=== PATIENT | female | born 1940 | race Caucasian/White ===

== ENCOUNTER → 2018-02-05 | Outpatient (CLI) | payer MEDICARE, BC ==
[2018-02-05 14:31] VITALS: BP 151/74; PULSE 87; RESP 14; TEMP 97.6; BMI 30.6
--- NOTE | 2018-02-05 14:57 | P.GSHP ---
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 She had a bilateral mammogram of the breast on 12-21-17 after which additional views of the left breast led to the biopsy. The patient had a routine screening mammogram performed in which the lesion of concern was identified. She has no masses or nodules in her breast. She has no nipple discharge or skin changes. She has no history of breast trauma or infection. Family History: 1. sister: nonHodgkins lymphoma 2. mother: at 98 of CHF 3. father: at 92 af a [place] Hormonal history Menarche: 11 Pregnancies: 3, 1 miscarrage and 2 living, age at first 18, breast fed: no menopause: 43 BCP: no Hormones: 15 years Surgical history 1. Tonsil 2. bilateral breast biopsies Medical history: 1. High cholesterol Social history smoke: 30 years, stopped at 43 Alcohol: Wine 1 glass per night Drugs: Negative - Constitutional Constitutional: Denies chills, Denies fever - EENT Eyes: left blurred vision (shingles in left eye), denies pain Ears: bilateral: tinnitus, deny: decreased hearing Ears, nose, mouth and throat: Denies headache, Denies sore throat - Breasts Breasts: bilateral: as per HPI - Cardiovascular Cardiovascular: Denies chest pain, Denies shortness of breath - Respiratory Respiratory: Denies cough, Denies 7 - Gastrointestinal Comment: reflux, hiatal hernia Gastrointestinal: Denies abdominal pain, Denies diarrhea, Denies nausea, Denies vomiting - Genitourinary (Female) Genitourinary: Denies dysuria, Denies hematuria - Menstruation Menstruation: Reports postmenopausal - Musculoskeletal Comment: arthritis Musculoskeletal: Denies myalgias - Integumentary Integumentary: Denies pruritus, Denies rash - Neurological Neurological: Denies numbness, Denies weakness - Psychiatric Psychiatric: Denies anxiety, Denies depression - Endocrine Endocrine: Denies fatigue, Denies weight change - Hematologic/Lymphatic Comment: aspirin every day - Allergic/Immunologic Comment: none Medications and Allergies Allergies Allergy/AdvReac Type Severity Reaction Status Date / Time No Known Allergies Allergy Unverified 02/05/18 14:19 Surgical - Exam - General well developed, well nourished, no distress - Eyes normal ocular movement - ENT no hearing loss, no congestion - Neck no masses, trachea midline - Respiratory normal respiratory effort, clear to auscultation - Cardiovascular Rhythm: regular Heart Sounds: normal: S1, S2 - Abdomen Abdomen: soft, non tender, no guarding, no rigid, no rebound - Integumentary bruising left breast - Neurologic no disoriented, no combative - Musculoskeletal normal gait, normal posture - Psychiatric oriented to time, oriented to person, oriented to place, speech is normal, memory intact Breast examination: Right breast: Multiple positional exam no dominant masses or nodules of concern , fibrocystic changes Right axilla: No adenopathy of concern Left breast: Ecchymosis related to stereo biopsy with a small hematoma near the site of the biopsy otherwise no dominant masses or nodules of concern Left axilla: No adenopathy of concern Results Pathology and radiology results reviewed Assessment and Plan Assessment: Impression: 1. DCIS left breast 2. High cholesterol Surgical options have been discussed with the patient her daughter and her . The option of needle localization excisional biopsy and possible radiation versus mastectomy have been discussed with the patient. We've discussed the risks and benefits including bleeding and infection reaction to the anesthetic possibility of positive margins requiring further excision. They understand this and wish to proceed with a needle localization lumpectomy. They also understand that it may be possible that we would find invasive cancer at the time of resection which may necessitate axillary evaluation. Plan: 1. Needle localization lumpectomy left breast 2. Patient will be presented at tumor board CC: Dr. Summers
== END | disposition home or self-care (01) ==
LOC: WWCWWP 13:54
PROVIDERS: ATTEND Surgery
DX: Z53.9 Procedure and treatment not carried out, unspecified reason (principal)

== ENCOUNTER 2018-02-23 10:25 | Day surgery (SDC) | payer MEDICARE, BC ==
[2018-02-18 10:35] VITALS: BMI 30.6
[~2018-02-23 10:25] MED LIST: HEPARIN SODIUM,PORCINE 5,000 UNIT/ML 1 ML VIAL SQ ONE; HYDROmorphone 0.5 MG/0.5 ML SYRINGE IVP PRN; HYDROmorphone 1 MG/ML 1 ML SYRINGE IVP PRN; LACTATED RINGERS 1,000 ML IV SCH; ONDANSETRON 4 MG/2 ML VIAL IVP ONE; ceFAZolin IN SWFI 2 GM/20 ML SYRINGE IVP ONE; fentaNYL (PF) 50 MCG/ML 2 ML AMP IV PRN
[2018-02-23] MEDS ORDERED: ALPRAZolam 0.25 MG TAB PO ONE (11:03)
[2018-02-23] MEDS ORDERED: LIDOCAINE 1% 20 ML VIAL (10MG/ML) FOR IV START INTRADERMA ONE (11:13)
[2018-02-23] MEDS ORDERED: SUCCINYLCHOLINE CHLORIDE 100 MG/5 ML SYR IV ONE ×2 (11:25→13:02)
[2018-02-23] MEDS ORDERED: fentaNYL (PF) 50 MCG/ML 2 ML AMP ONE ×2 (11:25→13:02)
[2018-02-23] MEDS ORDERED: ePHEDrine SULFATE/0.9% NACL/PF 50 MG/5 ML SYRINGE IV ONE (11:25)
[2018-02-23] MEDS ORDERED: PROPOFOL 10 MG/ML 20 ML VIAL IV ONE ×2 (11:25→13:02)
[2018-02-23] MEDS ORDERED: ROPIVACAINE 5 MG/ML 30 ML VIAL ONE (11:25)
[2018-02-23] MEDS ORDERED: MIDAZOLAM 2 MG/2 ML VIAL ONE ×2 (11:25→13:02)
[2018-02-23] MEDS ORDERED: LIDOCAINE 1% INJ 10MG/ML (20 ML MDV) ONE ×2 (11:25→13:02)
[2018-02-23 11:30] VITALS: RESP 16
[2018-02-23] MEDS ORDERED: SODIUM BICARB 4% 5 ML VIAL (0.48 MEQ/ML) MISCELLANE ONE (11:41)
[2018-02-23] MEDS ORDERED: LIDOCAINE 1% INJ 10MG/ML (20 ML MDV) SQ ONE ×5 (11:41→14:44)
[2018-02-23] MEDS ORDERED: HEPARIN SODIUM,PORCINE 5,000 UNIT/ML 1 ML VIAL SQ ONE (12:46)
--- NOTE | 2018-02-23 12:47 | P.PN ---
Progress Note - Text Progress Note Date: 02/23/18 Patient's case was presented at tumor Board and recommendation was to do a sentinel node biopsy at the time of the original surgery. The patient understands the risks and benefits of this and wishes to proceed. If the sentinel node is suspicious for frozen section will be obtained and possible complete lesion dissection performed.
[2018-02-23] MEDS ORDERED: LACTATED RINGERS 1,000 ML IV ONE (14:26)
--- NOTE | 2018-02-23 14:54 | P.OP ---
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 Postoperative Diagnosis: Same Procedure(s) Performed: Left breast sentinel node biopsy, lumpectomy, placement of BioSorb, tissue rearrangement, approximately 4 x 3 cm Anesthesia: GONZALEZ Surgeon: Carol Ann Landry Estimated Blood Loss (ml): 5 IV fluids (ml): 800 Pathology: other ([place] node, breast tissue) Condition: stable Disposition: same day Indications for Procedure: Patient with biopsy proven ductal carcinoma in situ of the left breast, possible microinvasion Operative Findings: Extremely dense breast tissue Description of Procedure: The patient was taken to the operating room and following induction of general anesthesia the left breast and axilla were prepped and draped in a sterile fashion. Utilizing the neoprobe the area of greatest radioactivity in the axilla was selected. An incision was made over this area. A lymph node which was approximately 1 cm in size was identified this was radioactive. The 10 second count on the lymph node was 3745. The lymph node was removed using careful dissection and the Harmonic scalpel. The lymph node was sent for frozen section evaluation as it felt slightly suspicious and this was negative for cancer on frozen section. The remainder of the axilla was interrogated using the neoprobe and the 10 second background count was 30. No other suspicious nodes nor radioactive nodes were identified. The deep tissues of the axilla were then closed using 3-0 Vicryl suture after the axilla had been irrigated and found to have good hemostasis. The skin was closed using 4-0 Monocryl. The area of the breast was then approached. Circumareolar incision was made and carried down the localizing needle. Wide excision around the area of the needle was performed. In order to facilitate this was necessary to undermine the breast tissue superiorly. The excision was then performed. The specimen was painted for orientation. Radiograph of the specimen revealed the area of concern about removed. To close the defect tissue rearrangement was performed approximately 4 cm x 3 cm. The cavity was measured for a Biozorb and a 3 x 3 by Biozorb was chosen. This was placed and secured in place using 3-0 Vicryl sutures. The dissection was performed down to the pectoralis major muscle posteriorly. An additional section of tissue nodularity was noted inferiorly and additional tissue was taken inferiorly with the external margin been painted for orientation. After we were assured that hemostasis was attained in the wound had been well irrigated and the skin was closed using 4-0 Monocryl. No All instrument and sponge counts were correct at the end of the case. The patient tolerated the procedure in stable condition.
--- NOTE | 2018-02-23 14:57 | P.DS ---
Providers Attending physician: Carol Ann Landry Primary care physician: Armani Summers Plan - Discharge Summary New Discharge Prescriptions: No Action Ibuprofen [Motrin] 400 mg PO DAILY PRN PRN Reason: Headache Multivitamin with Iron [Multivitamins with Iron] 1 each PO DAILY Ubidecarenone [Co Q-10] 400 mg PO DAILY Aspirin [Adult Low Dose Aspirin EC] 81 mg PO DAILY Omeprazole [PriLOSEC] 20 mg PO AC-BRKFST Atorvastatin [Lipitor] 10 mg PO HS Discharge Medication List Aspirin [Adult Low Dose Aspirin EC] 81 mg PO DAILY 02/05/18 [History] Atorvastatin [Lipitor] 10 mg PO HS 02/05/18 [History] Ibuprofen [Motrin] 400 mg PO DAILY PRN 02/05/18 [History] Multivitamin with Iron [Multivitamins with Iron] 1 each PO DAILY 02/05/18 [ History] Omeprazole [PriLOSEC] 20 mg PO AC-BRKFST 02/05/18 [History] Ubidecarenone [Co Q-10] 400 mg PO DAILY 02/05/18 [History] Follow up Appointment(s)/Referral(s): Carol Ann Landry MD [STAFF PHYSICIAN] - 1 Week Activity/Diet/Wound Care/Special Instructions: do not drive today wear bra at all times except in shower may shower after 48 hours Discharge Disposition: HOME SELF-CARE
--- NOTE | 2018-02-23 14:57 | P.NAPBC ---
NAPBC Queries - NAPBC Queries Was patient's case review presented at [facility] tumor board? If no, comment.: Yes Was patient's pathology reviewed at [facility]? If no, comment.: Yes Was breast conservation surgery offered? If no, comment.: Yes Was sentinel node biopsy offered? If no, comment.: Yes Was diagnosis confirmed by percutaneous core biopsy? If no, comment.: Yes If mastectomy patient, was a preop referral to a reconstructive surgeon offered? : Yes
--- NOTE | 2018-02-23 15:02 | NM ---
EXAMINATION TYPE: NM sentinel node injection DATE OF EXAM: 02/23/2018 COMPARISON: Outside exam dated 01/26/2018 and 12/28/2017 HISTORY: Left breast cancer. TECHNIQUE AND FINDINGS: The procedure of sentinel lymph node injection was explained to the patient. The benefits, alternatives, and risks were discussed. An informed consent was then obtained. Prepr ocedural timeout was performed. Overlying skin is cleaned with sterile alcohol. Following this, 539 uCi Tc99m Tilmanocept was inject ed in the upper outer aspect of the nipple intradermally. The patient tolerated the procedure well without any immediate complication. The patient was kept in the radiology department for short stay after the procedure and then taken to surgery for surgical p rocedure what is presumed intraoperative gamma probe will be used for sentinel lymph node detection. IMPRESSION: Left breast radiotracer injection for sentinel node localization as above.
[2018-02-23 15:10] VITALS: TEMP 97.6
[2018-02-23] MEDS ORDERED: HYDROcodone/APAP 5-325MG 1 EACH TAB PO ONE (16:06)
[2018-02-23 16:24] VITALS: BP 127/76; PULSE 79
== END 2018-02-23 16:42 | disposition home or self-care (01) ==
LOC: OR 10:25
PROVIDERS: ATTEND Surgery
DX: D05.12 Intraductal carcinoma in situ of left breast (principal); E78.00 Pure hypercholesterolemia, unspecified; K21.9 Gastro-esophageal reflux disease without esophagitis; Z79.82 Long term (current) use of aspirin; Z79.899 Other long term (current) drug therapy; Z78.0 Asymptomatic menopausal state; Z87.891 Personal history of nicotine dependence; Z88.8 Allergy status to other drugs, medicaments and biological substances
CPT/HCPCS: 19301; 38525; 88342; 88331; 88307; 88341; 38792; A4648; A9520; J2250; J1644; J2405; J2001; J3010; J2795; J0330; J2704; J1170; J0690

== ENCOUNTER → 2018-03-05 | Outpatient (CLI) | payer MEDICARE, BC ==
[2018-03-05 08:41] VITALS: BP 156/70; PULSE 77; RESP 18; TEMP 96.5; BMI 31.1
--- NOTE | 2018-03-05 09:41 | P.PN ---
Subjective Progress Note Date: 03/05/18 Principal diagnosis: Left breast ductal carcinoma in situ could not rule out invasive carcinoma patient underwent a lumpectomy with sentinel biopsy The patient is a 77-year-old white female who is status post a left breast lumpectomy and sentinel node biopsy performed [id number]. Pathology did not reveal any residual cancer and the lymph nodes were negative for metastatic disease. Pathology did reveal intraductal hyperplasia with atypia and an intraductal papilloma. The patient has no complaints related to the surgery. She used the pain medication only on the day of surgery. Objective - Vital Signs Vital signs: Vital Signs Temp 96.5 F L 03/05/18 08:35 Pulse 77 03/05/18 08:35 Resp 18 03/05/18 08:35 BP 156/70 03/05/18 08:35 Pulse Ox 97 03/05/18 08:35 Intake & Output 03/04/18 03/05/18 03/05/18 18:59 06:59 18:59 Weight 77.111 kg - Exam BMI 31.1 - Constitutional General appearance: Present: average body habitus - EENT Eyes: Present: EOMI ENT: Present: hearing grossly normal - Neck Neck: Present: normal ROM - Respiratory Respiratory: bilateral: CTA - Cardiovascular Rhythm: regular Heart sounds: normal: S1, S2 - Gastrointestinal General gastrointestinal: Present: soft - Integumentary Integumentary Comment(s): Incision clean and dry both on the breast and under the axilla on the left - Musculoskeletal Musculoskeletal: Present: gait normal - Psychiatric Psychiatric: Present: A&O x's 3, appropriate affect, intact judgment & insight Assessment and Plan Assessment: Impression/plan: 1. Stage 0 left breast cancer ductal carcinoma in situ 2. Patient status post lumpectomy sentinel node biopsy there was concern that there was some microinvasion Plan: 1. Appointment with medical oncology 2. Appointment with radiation oncology 3. follow up 3 months CC: Dr. Summers
== END | disposition home or self-care (01) ==
LOC: WWCWWP 08:26
PROVIDERS: ATTEND Surgery
DX: Z53.9 Procedure and treatment not carried out, unspecified reason (principal)
CPT/HCPCS: 76098

== ENCOUNTER → 2018-10-27 | Outpatient (CLI) | payer MEDICARE, BC ==
--- NOTE | 2018-10-27 11:14 | MM ---
Reason for exam: follow-up at short interval from prior study. History: Patient is postmenopausal and has history of breast cancer at age 77. Benign MG pre op needle loc LT of the left breast, February 23, 2018. Physical Findings: Nurse did not find any significant physical abnormalities on exam. MG 3D Diag Mammo W/Cad LT Spot compression CC, spot compression MLO, and ML view(s) were taken of the left breast. The breast tissue is heterogeneously dense. This may lower the sensitivity of mammography. Finding #1: Architectural distortion in the central position of the left breast consistent with previous surgery. Finding #2: There are typically benign calcifications in the left breast. These results were verbally communicated with the patient and result sheet given to the patient on 10/27/18. ASSESSMENT: Probably benign, BI-RAD 3 RECOMMENDATION: Follow-up diagnostic mammogram of both breasts in 6 months.
== END | disposition home or self-care (01) ==
LOC: RADMAMWWP 10:04
PROVIDERS: ATTEND Surgery
DX: R92.8 Other abnormal and inconclusive findings on diagnostic imaging of breast (principal)
CPT/HCPCS: 77065; G0279; 77061

== ENCOUNTER → 2019-01-14 | Outpatient (CLI) | payer MEDICARE, BC ==
[2019-01-14 10:20] VITALS: BP 127/70; PULSE 90; RESP 18; TEMP 97.9; BMI 32.3
--- NOTE | 2019-01-14 10:45 | P.PN ---
Subjective Progress Note Date: 01/14/19 Anna is an 78 year old status post left breast lumpectomy and sentinel node biopsy and [id number]. Pathology did not reveal any residual cancer at that time. This was done for ductal carcinoma in situ. The patient did not have any radiation therapy. She did not have any chemo or hormonal therapy. Pathology at the time of surgery did reveal intraductal hyperplasia with atypia and an intraductal papilloma. [place] [id number]. This was felt to be probably benign BIRADS 3 and follow-up diagnostic mammogram of both breasts in 6 months time was recommended. The patient continues to feel some illness at the site of the lumpectomy. The patient is not complaining of any increase in the size of the area. She is not complaining of any pain. The patient saw a medical oncologist and radiation oncologist in [place] and opted not to have any additional treatment. Family History: 1. sister: nonHodgkins lymphoma 2. mother: at 98 of CHF 3. father: at 92 af a [place] Hormonal history Menarche: 11 Pregnancies: 3, 1 miscarrage and 2 living, age at first 18, breast fed: no menopause: 43 BCP: no Hormones: 15 years Surgical history 1. Tonsil 2. bilateral breast biopsies 3. left breast lumpectomy and SNB. Medical history: 1. High cholesterol Social history smoke: 30 years, stopped at 43 Alcohol: Wine 1 glass per night Drugs: Negative - Constitutional Constitutional: Denies chills, Denies fever - EENT Eyes: left blurred vision (shingles in left eye), denies pain Ears: bilateral: tinnitus, deny: decreased hearing Ears, nose, mouth and throat: Denies headache, Denies sore throat - Breasts Breasts: bilateral: as per HPI - Cardiovascular Cardiovascular: Denies chest pain, Denies shortness of breath - Respiratory Respiratory: Denies cough, Denies 7 - Gastrointestinal Comment: reflux, hiatal hernia Gastrointestinal: Denies abdominal pain, Denies diarrhea, Denies nausea, Denies vomiting - Genitourinary (Female) Genitourinary: Denies dysuria, Denies hematuria - Menstruation Menstruation: Reports postmenopausal - Musculoskeletal Comment: arthritis Musculoskeletal: Denies myalgias - Integumentary Integumentary: Denies pruritus, Denies rash - Neurological Neurological: Denies numbness, Denies weakness - Psychiatric Psychiatric: Denies anxiety, Denies depression - Endocrine Endocrine: Denies fatigue, Denies weight change - Hematologic/Lymphatic Comment: stopped taking aspirin - Allergic/Immunologic Comment: none Objective - Vital Signs Vital signs: Vital Signs Temp 97.9 F 01/14/19 10:14 Pulse 90 01/14/19 10:14 Resp 18 01/14/19 10:14 BP 127/70 01/14/19 10:14 Pulse Ox 95 01/14/19 10:14 Intake & Output 01/13/19 01/14/19 01/14/19 18:59 06:59 18:59 Weight 80.286 kg - Exam BMI 32.4 - Constitutional General appearance: Present: average body habitus - EENT Eyes: Present: EOMI ENT: Present: hearing grossly normal - Respiratory Respiratory: bilateral: CTA - Cardiovascular Rhythm: regular Heart sounds: normal: S1, S2 - Gastrointestinal General gastrointestinal: Present: soft - Integumentary Integumentary: Present: normal turgor - Musculoskeletal Musculoskeletal: Present: gait normal - Psychiatric Psychiatric: Present: A&O x's 3, appropriate affect, intact judgment & insight - Additional findings Additional findings: breast exam: Right breast: Multi-positional exam no dominant masses or nodules of concern Right breast slightly larger than left breast Right axilla: No adenopathy of concern Left breast: Well-healed scar from prior surgery BioSorb in place no dominant masses or nodules of concern on multi-positional exam fibrocystic changes Left axilla: No adenopathy of concern We have discussed the fact that her breasts are slightly asymmetric and the patient is not interested in the contralateral symmetry procedure Assessment and Plan Assessment: Impression: 1. Patient status post left breast lumpectomy and sentinel node biopsy for DCIS's last suspicion for invasion 2. Tumor DCIS, suspicious invasion, ER negative, 8 MT negative, HER-2 positive G2 3. Family history of cancer sister with Hodgkin's lymphoma 4. High cholesterol. 5. Patient is not taking an anti-hormone medication 6. Patient will be due for bilateral mammogram in April 2019 Plan: 1. Repeat bilateral mammogram in April however patient will be in [place] and she will get Indocin and she gets back as she wishes not to have it done in [place] 2. Follow-up as soon as patient returns from [place], patient given option to have it before she leaves and wishes to wait as she gets back 3. Medical management of medical conditions CC: DR. Summers
== END ==
LOC: WWCWWP 09:57
PROVIDERS: ATTEND Surgery
DX: Z53.9 Procedure and treatment not carried out, unspecified reason (principal)

== ENCOUNTER → 2019-10-31 | Outpatient (CLI) | payer MEDICARE, BC ==
--- NOTE | 2019-10-31 15:06 | MM ---
Reason for exam: additional evaluation requested from prior study. Last mammogram was performed 1 year ago. History: Patient is postmenopausal, has history of breast cancer at age 77, and history of other cancer. Benign MG pre op needle loc LT of the left breast, February 23, 2018. Benign excisional biopsy of the right breast. Lumpectomy of the left breast. Took estrogen for 20 years. Took progesterone for 20 years. Physical Findings: Nurse did not find any significant physical abnormalities on exam. MG 3D Diag Mammo W/Cad CHARIS Bilateral CC and MLO view(s) were taken. Prior study comparison: October 27, 2018, left breast MG 3d diag mammo w/cad LT. The breast tissue is heterogeneously dense. This may lower the sensitivity of mammography. Finding #1: Architectural distortion in the left breast consisent with known excisional changes. Finding #2: There are typically benign round calcifications in both breasts. 10mm grouped heterogeneous calcifications in the left breast middle depth outer lower quadrant. These results were verbally communicated with the patient and result sheet given to the patient on 10/31/19. ASSESSMENT: Suspicious, BI-RAD 4 Suspicious, BI-RAD 4 abnormality in the left breast. Incomplete: need prior studies of the right breast. RECOMMENDATION: Stereotactic core biopsy of the left breast. Called office with mammographic findings and has scheduled an appointment for the patient for 11/10/19 at 2:[address] Landry. Biopsy scheduled for 11/17/19 at 8:00. PRELIMINARY REPORT CALLED AND FAXED TO DR. LANDRY ON 10/31/19.
== END | disposition home or self-care (01) ==
LOC: RADMAMWWP 13:41
PROVIDERS: ATTEND Surgery
DX: R92.8 Other abnormal and inconclusive findings on diagnostic imaging of breast (principal)
CPT/HCPCS: 77066; G0279; 77062

== ENCOUNTER → 2019-11-10 | Outpatient (CLI) | payer MEDICARE, BC ==
[2019-11-10 14:56] VITALS: BP 138/74; PULSE 87; RESP 20; TEMP 98.1
--- NOTE | 2019-11-10 15:42 | P.PN ---
Subjective Progress Note Date: 11/10/19 Principal diagnosis: left breast DCIS, abnormal left breast mammogram Anna is an 78 year old status post left breast lumpectomy and sentinel node biopsy and [id number]. Pathology did not reveal any residual cancer at that time. This was done for ductal carcinoma in situ. The patient did not have any radiation therapy. She did not have any chemo or hormonal therapy. Pathology at the time of surgery did reveal intraductal hyperplasia with atypia and an intraductal papilloma. [place] [id number]. This was felt to be probably benign BIRADS 3 and follow-up diagnostic mammogram of both breasts in 6 months time was recommended. The patient continues to feel some fullness at the site of the lumpectomy, a biozorb was placed The patient is not complaining of any increase in the size of the area. She is not complaining of any pain. The patient saw a medical oncologist and radiation oncologist in [place] and opted not to have any additional treatment. The patient at this time is not complaining of any new lumps masses or nodules in either breast. She is complaining of any breast pain. She's not had any recent breast trauma or infection. The patient had a bilateral mammogram performed and [id number]. This revealed stable findings in the right breast. In the left breast she was noted to have architectural distortion consistent with known excisional changes as well as typically benign down calcifications in both breast and a 10 mm grouped heterogeneous calcifications in the left breast middle depth outer lower quadrant. The heterogeneous calcifications were felt to be suspicious and stereotactic core biopsy of the left breast was recommended. Family History: 1. sister: nonHodgkins lymphoma 2. mother: at 98 of CHF 3. father: at 92 af a [place] Hormonal history Menarche: 11 Pregnancies: 3, 1 miscarrage and 2 living, age at first 18, breast fed: no menopause: 43 BCP: no Hormones: 15 years Surgical history 1. Tonsil 2. bilateral breast biopsies 3. left breast lumpectomy and SNB. Medical history: 1. High cholesterol 2. hiatal hernia Social history smoke: 30 years, stopped at 43 Alcohol: Wine 1 glass per night Drugs: Negative - Constitutional Constitutional: Denies chills, Denies fever - EENT Eyes: left blurred vision (shingles in left eye), denies pain Ears: bilateral: tinnitus, deny: decreased hearing Ears, nose, mouth and throat: Denies headache, Denies sore throat - Breasts Breasts: bilateral: as per HPI - Cardiovascular Cardiovascular: Denies chest pain, Denies shortness of breath - Respiratory Respiratory: Denies cough - Gastrointestinal Comment: reflux, hiatal hernia Gastrointestinal: Denies abdominal pain, Denies diarrhea, Denies nausea, Denies vomiting - Genitourinary (Female) Genitourinary: Denies dysuria, Denies hematuria - Menstruation Menstruation: Reports postmenopausal - Musculoskeletal Comment: arthritis Musculoskeletal: Denies myalgias - Integumentary Integumentary: Denies pruritus, Denies rash - Neurological Neurological: Denies numbness, Denies weakness - Psychiatric Psychiatric: Denies anxiety, Denies depression - Endocrine Endocrine: Denies fatigue, Denies weight change - Hematologic/Lymphatic Comment: stopped taking aspirin - Allergic/Immunologic PER HPI Objective - Vital Signs Vital signs: Vital Signs Temp 98.1 F 11/10/19 14:53 Pulse 87 11/10/19 14:53 Resp 20 11/10/19 14:53 BP 138/74 11/10/19 14:53 Pulse Ox 95 11/10/19 14:53 Intake & Output 11/09/19 11/10/19 11/10/19 18:59 06:59 18:59 Weight 82.554 kg - Exam BMI 33.3 - Constitutional General appearance: Present: obese - EENT Eyes: Present: EOMI ENT: Present: hearing grossly normal - Neck Neck: Present: normal ROM - Respiratory Respiratory: bilateral: CTA - Cardiovascular Rhythm: regular Heart sounds: normal: S1, S2 - Gastrointestinal General gastrointestinal: Present: normal bowel sounds, soft - Integumentary Integumentary: Present: normal turgor - Musculoskeletal Musculoskeletal: Present: gait normal - Psychiatric Psychiatric: Present: A&O x's 3, appropriate affect, intact judgment & insight - Additional findings Additional findings: breast exam: BRA cup size C inspection: Left breast smaller than right breast, well-healed scar from prior breast surgery, ptosis grade 2/3 bilateral Palpation: Right breast: Multiple positional exam no dominant masses or nodules of concern, fibrocystic changes Right axilla: No adenopathy of concern Left breast: Multi-positional exam no dominant masses or nodules of concern, well-healed scar from prior surgery, BioSorb is still palpable in the 12 o'clock position Left axilla: No adenopathy of concern Assessment and Plan Assessment: Impression: 1. Bilateral fibrocystic breast changes 2. Postsurgical changes left breast/BioSorb stapler probable 3. Mammographic abnormality left breast 4. Fibrocystic changes bilateral 5. BMI 33.3 6. No evidence of recurrent cancer/patient positive DCIS in February 2018 Plan: 1. Left breast stereotactic core biopsy 2. Repeat examination in 6 months 3. Patient has opted not to have radiation or hormonal therapy CC: Dr. Summers encounter 20 minutes, > 50% of time in planning and counselling Time with Patient: Less than 30
== END | disposition home or self-care (01) ==
LOC: WWCWWP 14:33
PROVIDERS: ATTEND Surgery
DX: Z53.9 Procedure and treatment not carried out, unspecified reason (principal)

== ENCOUNTER → 2019-11-17 | Day surgery (SDC) | payer MEDICARE, BC ==
--- NOTE | 2019-11-17 08:45 | P.PCN ---
Date of Procedure: 11/17/19 Preoperative Diagnosis: Mammographic abnormality left breast middle depth outer lower quadrant/microcalcifications of concern Postoperative Diagnosis: Same Procedure(s) Performed: Left breast stereotactic core biopsy Anesthesia: local Surgeon: Carol Ann Landry Estimated Blood Loss (ml): 0.05 Pathology: other (Breast tissue) Condition: stable Disposition: same day Indications for Procedure: Mammographic abnormality heterogeneous calcifications left breast middle depth outer lower quadrant Operative Findings: Microcalcifications noted and biopsy specimen Description of Procedure: The patient is an 79-year-old white female who is status post known excisional resection of the left breast in the past. On a mammogram performed on 10/2219 she was noted to have heterogeneous calcifications in the left breast middle depth outer lower quadrant for which stereotactic core biopsy was recommended. She was recommended to undergo stereotactic core biopsy. Risks and benefits the procedure were discussed with the patient and she wished to proceed. Alternatives such as watchful waiting or resection in the operating room were not recommended. The patient was taken to the stereotactic core biopsy wound. She was positioned on the stereotactic prone table. A carbide die maker film was obtained and revealed the calcifications of concern. The CC from below approach was utilized. This is the left breast in the lower outer quadrant. A sterile repair was obtained. The area of concern was targeted. The breast was prepped using Betadine. 20 mL of 1% lidocaine were used to anesthetize the area of concern. A 9-gauge vacuum-assisted core rotating biopsy needle was taken to the correct coordinates. The needle was fired. Post fire films were obtained. The needle was noted to be in the correct location. 13 core biopsies were obtained. Radiograph of the specimen revealed that the area of concern had been sampled. Calcifications were noted in the specimen. A secure marked top marker was placed. The patient tolerated the procedure in stable condition. Specimen was sent to pathology. The patient will follow-up with Dr. Clement next week.
--- NOTE | 2019-11-17 16:34 | MM ---
EXAMINATION TYPE: MG stereo VAD BX LT DATE OF EXAM: 11/17/2019 COMPARISON: 10/31/2019 CLINICAL HISTORY: 79-year-old female with personal history of left breast cancer referred for biopsy of left breast microcalcifications. TECHNIQUE: Stereotactic guided core biopsy of the left breast. FINDINGS: The procedure of stereotactic guided core biopsy was explained to the patient. Benefits, alternatives, and risks were discussed. An informed consent was then obtained. The shortness pathway for biopsy was chosen for the lower outer quadrant microcalcifications at a middle depth. Shortness pathway was an inferior approach. I performed the localization, then surgeon, Dr. Urbano Bustos performed the remainder of the procedure. A vacuum assisted biopsy gun was used to obtain multiple core samples. The patient tolerated the procedure well without any immediate complication. The patient was kept in the radiology department for short stay after the procedure and then discharged home in stable condition. Targeted calcifications are identified in specimen mammogram. Post biopsy mammogram shows suspected 1 cm superior migration on the lateral view. IMPRESSION: SUCCESSFUL, UNCOMPLICATED STEREOTACTIC GUIDED CORE BIOPSY OF LOWER OUTER QUADRANT LEFT BREAST MICROCALCIFICATIONS IN A PATIENT WITH A PERSONAL HISTORY OF PRIOR LEFT BREAST CANCER. NOTE THAT THERE APPEARS TO HAVE BEEN 1 CM OF SUPERIOR MIGRATION. FULL PATHOLOGY RESULTS TO FOLLOW. Pathology Results: Benign LEFT BREAST, STEREOTACTIC CORE BIOPSY: Fibrocystic changes including fibroadenomatoid hyperplasia with calcifications. Recommendation Follow up mammogram of the left breast in 6 months. MTDD
[2019-11-18 09:54] VITALS: BP 154/78; PULSE 85; RESP 16; TEMP 98.2
== END ==
LOC: RADMAMWWP 07:05
PROVIDERS: ATTEND Surgery
DX: N60.12 Diffuse cystic mastopathy of left breast (principal); N60.82 Other benign mammary dysplasias of left breast
CPT/HCPCS: 88305; 19081; A4648; J2001

== ENCOUNTER → 2020-11-01 | Outpatient (CLI) | payer MEDICARE, BC ==
--- NOTE | 2020-11-02 10:31 | MM ---
Reason for exam: additional evaluation requested from prior study. Last mammogram was performed 1 year ago. History: Patient is postmenopausal, has history of breast cancer at age 77, and history of other cancer. Benign MG stereo VAD BX LT of the left breast, November 17, 2019. Benign MG pre op needle loc LT of the left breast, February 23, 2018. Stereotactic core biopsy of the left breast, January 27, 2018. Benign excisional biopsy of the right breast. Lumpectomy of the left breast. Took estrogen for 20 years. Took progesterone for 20 years. Physical Findings: Nurse Summary: 2cm nodule in the left breast at 12 o'clock (nurse TM). MG 3D Diag Mammo W/Cad CHARIS Bilateral CC and MLO view(s) were taken. Prior study comparison: October 31, 2019, bilateral MG 3d diag mammo w/cad CHARIS. October 27, 2018, left breast MG 3d diag mammo w/cad LT. There are scattered fibroglandular densities. Left post operative changes and biopsy clip. These results were verbally communicated with the patient and result sheet given to the patient on 11/01/20. ASSESSMENT: Benign, BI-RAD 2 RECOMMENDATION: Follow-up diagnostic mammogram of both breasts in 1 year.
== END | disposition home or self-care (01) ==
LOC: RADMAMWWP 12:50
PROVIDERS: ATTEND Surgery
DX: R92.8 Other abnormal and inconclusive findings on diagnostic imaging of breast (principal)
CPT/HCPCS: 77066; G0279; 77062

== ENCOUNTER → 2021-11-08 | Outpatient (CLI) | payer MEDICARE, BC ==
--- NOTE | 2021-11-08 13:35 | MM ---
Reason for Exam: Hx of breast cancer, conservation therapy. Last mammogram was performed 1 year(s) and 1 month(s) ago. Patient History: Menarche at age 10. First Full-Term at age 18. Postmenopausal. Breast cancer, left, age 77. Other cancer. Patient used Estrogen for 20 years. Patient used Progesterone for 20 years. 01/27/2018, Stereotactic Core Biopsy on the Left side. Benign Excisional Biopsy on the right side. Lumpectomy on the Left side. 11/17/2019, Benign Core Biopsy on the left side. 02/23/2018, Benign Core Biopsy on the left side. Prior Study Comparison: 12/21/2017 Bilateral Screening Mammogram, [facility]. 01/05/2018 Left Screening Mammogram, [facility]. 10/27/2018 Left Diagnostic Mammogram, [facility]. 10/31/2019 Bilateral Diagnostic Mammogram, [facility]. 11/01/2020 Bilateral Diagnostic Mammogram, [facility]. Tissue Density: There are scattered fibroglandular densities. Findings: Analyzed By CAD. Postbiopsy changes are within the left breast. Chronic nodularity is within the right breast. No suspicious spiculated or lobular masses clustered microcalcifications, architectural distortion, or other secondary signs of malignancy are radiographically apparent. Overall Assessment: Benign, BI-RAD 2 Management: Diagnostic Mammogram of both breasts in 1 year. A clinical breast exam by your physician is recommended on an annual basis and results should be correlated with mammographic findings. This exam should not preclude additional follow-up of suspicious palpable abnormalities. Results were given to the patient verbally at the time of exam. Electronically signed and approved by: Stephen Obrien D.O. Radiologis
== END | disposition home or self-care (01) ==
LOC: RADMAMWWP 12:54
PROVIDERS: ATTEND Surgery
DX: R92.8 Other abnormal and inconclusive findings on diagnostic imaging of breast (principal)
CPT/HCPCS: 77066; G0279; 77062

== ENCOUNTER → 2021-11-21 | Outpatient (CLI) | payer MEDICARE, BC ==
[2021-11-21 12:07] VITALS: BP 146/77; PULSE 67; RESP 17; TEMP 98.3
--- NOTE | 2021-11-21 12:26 | P.PN ---
Subjective Progress Note Date: 11/21/21 Principal diagnosis: left breast DCIS left breast DCIS Anna is an 81 year old status post left breast lumpectomy and sentinel node biopsy and [id number]. Pathology did not reveal any residual cancer at that time. This was done for ductal carcinoma in situ. The patient did not have any radiation therapy. She did not have any chemo or hormonal therapy. Pathology at the time of surgery did reveal intraductal hyperplasia with atypia and an intraductal papilloma. This time she is not complaining of any lumps masses or nodules of concern in either breast. She is not complaining of any breast pain. She has not had any recent trauma or infection in the breast. The most recent mammogram was 11-08-21 which was benign BIRAD 2. Family History: 1. sister: nonHodgkins lymphoma 2. mother: at 98 of CHF 3. father: at 92 af a [place] Hormonal history Menarche: 11 Pregnancies: 3, 1 miscarrage and 2 living, age at first 18, breast fed: no menopause: 43 BCP: no Hormones: 15 years Surgical history 1. Tonsil 2. bilateral breast biopsies 3. left breast lumpectomy and SNB. Medical history: 1. High cholesterol 2. hiatal hernia Social history smoke: 30 years, stopped at 43 Alcohol: Wine 1 glass per night Drugs: Negative - Constitutional Constitutional: Denies chills, Denies fever - EENT Eyes: left blurred vision (shingles in left eye), denies pain Ears: bilateral: tinnitus, deny: decreased hearing Ears, nose, mouth and throat: Denies headache, Denies sore throat - Breasts Breasts: bilateral: as per HPI - Cardiovascular Cardiovascular: Denies chest pain, Denies shortness of breath - Respiratory Respiratory: Denies cough - Gastrointestinal Comment: reflux, hiatal hernia Gastrointestinal: Denies abdominal pain, Denies diarrhea, Denies nausea, Denies vomiting - Genitourinary (Female) Genitourinary: Denies dysuria, Denies hematuria - Menstruation Menstruation: Reports postmenopausal - Musculoskeletal Comment: arthritis Musculoskeletal: Denies myalgias - Integumentary Integumentary: Denies pruritus, Denies rash - Neurological Neurological: Denies numbness, Denies weakness - Psychiatric Psychiatric: Denies anxiety, Denies depression - Endocrine Endocrine: Denies fatigue, Denies weight change - Hematologic/Lymphatic Comment: stopped taking aspirin - Allergic/Immunologic PER HPI Objective - Vital Signs Vital signs: Vital Signs Temp 98.3 F 11/21/21 12:05 Pulse 67 11/21/21 12:05 Resp 17 11/21/21 12:05 BP 146/77 11/21/21 12:05 Pulse Ox 99 11/21/21 12:05 FiO2 Intake & Output 11/20/21 11/21/21 11/21/21 18:59 06:59 18:59 Weight 79.832 kg - Exam BMI: 32.2 - Constitutional General appearance: Present: cooperative - EENT Eyes: Present: EOMI ENT: Present: hearing grossly normal - Neck Neck: Present: normal ROM - Respiratory Respiratory: bilateral: CTA - Cardiovascular Rhythm: regular Heart sounds: normal: S1, S2 - Integumentary Integumentary: Present: normal turgor - Musculoskeletal Musculoskeletal: Present: gait normal - Psychiatric Psychiatric: Present: A&O x's 3, appropriate affect, intact judgment & insight - Additional findings Additional findings: Breast Exam: BRA: 36C inspection: Left breast smaller than right breast. Palpation: Right breast: Multi-positional exam fibrocystic changes no dominant masses or nodules of concern Right axilla: No adenopathy of concern Left breast: Postoperative changes no dominant masses or nodules of concern, BioSorb is no longer palpable Left axilla: No adenopathy of concern Assessment and Plan Assessment: Impression: Patient status post left lumpectomy for ductal carcinoma in situ no evidence of recurrent disease Patient did not have radiation or hormonal therapy Asymmetry of the breast Plan: Repeat bilateral mammogram in 1 year follow up in 6 months for an exam CC: Dr. Summers
== END | disposition home or self-care (01) ==
LOC: WWCWWP 11:43
PROVIDERS: ATTEND Surgery
DX: Z53.9 Procedure and treatment not carried out, unspecified reason (principal)

== ENCOUNTER → 2022-11-14 | Outpatient (CLI) | payer MEDICARE, BC ==
--- NOTE | 2022-11-14 11:52 | MM ---
Reason for Exam: Additional evaluation requested from prior study. Last screening mammogram was performed 12 month(s) ago. Patient History: Menarche at age 10. First Full-Term at age 18. Postmenopausal. Breast cancer, left, age 77. Other cancer. Patient used Estrogen for 20 years. Patient used Progesterone for 20 years. 01/27/2018, Stereotactic Core Biopsy on the Left side. Benign Excisional Biopsy on the right side. Lumpectomy on the Left side. 11/17/2019, Benign Core Biopsy on the left side. 02/23/2018, Benign Core Biopsy on the left side. Prior Study Comparison: 12/10/2016 Bilateral Screening Mammogram, [facility]. 12/21/2017 Bilateral Screening Mammogram, [facility]. 01/05/2018 Left Screening Mammogram, [facility]. 10/27/2018 Left Diagnostic Mammogram, [facility]. 10/31/2019 Bilateral Diagnostic Mammogram, [facility]. 11/01/2020 Bilateral Diagnostic Mammogram, [facility]. 11/08/2021 Bilateral MG 3D diag mammo w/cad CHARIS, [facility]. Tissue Density: The breast tissue is almost entirely fat. Findings: Analyzed By CAD. There are new grouped calcifications in the left breast posterior to the surgical clips. Additional left breast biopsy clip noted. Other calculations are also present. Right breast: No new suspicious masses, calcifications or distortions. Overall Assessment: Probably benign, BI-RAD 3 Management: Diagnostic Mammogram of the left breast in 6 months. Results were given to the patient verbally at the time of exam. Patient should continue monthly self-breast exams. A clinical breast exam by your physician is recommended on an annual basis. This exam should not preclude additional follow-up of suspicious palpable abnormalities. Note on Sultana scores and lifetime risk: 1. A Sultana score greater than 3% is considered moderate risk. If this is the case, consider specialist referral to assess eligibility for a risk reducing agent. 2. If overall lifetime risk for the development of breast cancer is 20% or higher, the patient may qualify for future screening with alternating mammogram and breast MRI. Electronically signed and approved by: Claudio Melo DO
== END | disposition home or self-care (01) ==
LOC: RADMAMWWP 10:52
PROVIDERS: ATTEND Surgery
DX: R92.1 Mammographic calcification found on diagnostic imaging of breast (principal); Z85.3 Personal history of malignant neoplasm of breast; Z78.0 Asymptomatic menopausal state
CPT/HCPCS: 77066; G0279; 77062

== ENCOUNTER → 2022-11-21 | Outpatient (CLI) | payer MEDICARE, BC ==
--- NOTE | 2022-11-21 14:38 | BD ---
EXAMINATION TYPE: Axial Bone Density DATE OF EXAM: 11/21/2022 CLINICAL HISTORY: 82 years old Female. ICD-10 CODE: M81.0 AGE RELATED OSTEOPOROSIS Height: 60.4 pt had her calcium tablet at 1200 midnig ht...she states Weight: 175 FRAX RISK QUESTIONS: History of Fracture in Adulthood: just toes Secondary Osteoporosis: yes 3. Menopause before 45: yes, at 43 Current Tobacco Use: past smoker RISK FACTORS HISTORY OF: hx of toe fxs as and adult only Postmenopausal woman: yes, at 43 yrs old Take estrogen and/or progesterone medications: yes, in past for 15 yrs Lost more than 2 inches in height since high school: yes Frequent falls: unsteady, elderly Hyperparathyroidism: no Adrenal Insufficiency: no MEDICATIONS: Additional Medications: hx of breast cancer in her left breast, lumpectomy, no radiation or chemo, re flux meds, statin for cholesterol, multivitamin, Additional History: hx of breast cancer, lt breast, lumpectomy 5 yrs ago, cholesterol, reflux, EXAM MEASUREMENTS: Bone mineral densitometry was performed using the [employer] System. Bone mineral density as measured about the Lumbar spine is: ----- L1-L4(G/cm2): 1.125 T Score Values are as follows: ----- L1: -1.0 ----- L2: -2.4 ----- L3: -0.2 ----- L4: 1.0 ----- L1-L4: -0.5 Z Score Values are as follows: ----- L1: 0.4 ----- L2: -0.9 ----- L3: 1.2 ----- L4: 2.4 ----- L1-L4: 1.0 Bone mineral density first bone density at [facility] Bone mineral density about the R hip (g/cm2): 0.912 Bone mineral density about the L hip (g/cm2): 0.944 T Score values are as follows: -----R Neck: -1.5 -----L Neck: -1.9 -----R Total: -0.8 -----L Total: -0.5 Z Score values are as follows: -----R Neck: 0.5 -----L Neck: 0.1 -----R Total: 1.1 -----L Total: 1.4 Bone mineral density is her first dexa at [facility] FRAX%s: The graph provided illustrates a 20.6% chance for a major osteoporotic fx and a 5.5% chance f or the hips probability for fx in 10 years time. IMPRESSION: Osteopenia (T Score between -2.5 and -1). There is slightly increased risk of fracture and the patient may be considered for treatment. Re-Screen 2-5 years. NOTE: T-SCORE=SD OF THE YOUNG ADULT MEAN.
== END | disposition home or self-care (01) ==
LOC: RADBDWWP 09:21
PROVIDERS: ATTEND Internal Medicine Geriatric Medicine
DX: M81.0 Age-related osteoporosis without current pathological fracture (principal); M85.89 Other specified disorders of bone density and structure, multiple sites; Z78.0 Asymptomatic menopausal state
CPT/HCPCS: 77080

== ENCOUNTER → 2022-11-21 | Outpatient (CLI) | payer MEDICARE, BC ==
--- NOTE | 2022-11-21 09:15 | P.PN ---
Subjective Progress Note Date: 11/21/22 Principal diagnosis: left breast DCIS left breast DCIS Anna is an 82 year old female status post left breast lumpectomy and sentinel node biopsy on [id number]. Pathology did not reveal any residual cancer at that time. This was done for ductal carcinoma in situ. The patient did not have any radiation therapy. She did not have any chemo or hormonal therapy. Pathology at the time of surgery did reveal intraductal hyperplasia with atypia and an intraductal papilloma. At this time she is not complaining of any lumps masses or nodules of concern in either breast. She is not complaining of any breast pain. She has not had any recent trauma or infection in the breast. The most recent mammogram was 11-14-22 which was benign BIRAD 3, new calcifications noted int he left breast and repeat in 6 months recommended. Family History: 1. sister: nonHodgkins lymphoma 2. mother: at 98 of CHF 3. father: at 92 af a [place] Hormonal history Menarche: 11 Pregnancies: 3, 1 miscarrage and 2 living, age at first 18, breast fed: no menopause: 43 BCP: no Hormones: 15 years Surgical history 1. Tonsil 2. bilateral breast biopsies 3. left breast lumpectomy and SNB. Medical history: 1. High cholesterol 2. hiatal hernia Social history smoke: 30 years, stopped at 43 Alcohol: Wine 1 glass per night Drugs: Negative - Constitutional Constitutional: Denies chills, Denies fever - EENT Eyes: left blurred vision (shingles in left eye), denies pain Ears: bilateral: tinnitus, deny: decreased hearing Ears, nose, mouth and throat: Denies headache, Denies sore throat - Breasts Breasts: bilateral: as per HPI - Cardiovascular Cardiovascular: Denies chest pain, Denies shortness of breath - Respiratory Respiratory: Denies cough - Gastrointestinal Comment: reflux, hiatal hernia Gastrointestinal: Denies abdominal pain, Denies diarrhea, Denies nausea, Denies vomiting - Genitourinary (Female) Genitourinary: Denies dysuria, Denies hematuria - Menstruation Menstruation: Reports postmenopausal - Musculoskeletal Comment: arthritis Musculoskeletal: Denies myalgias - Integumentary Integumentary: Denies pruritus, Denies rash - Neurological Neurological: Denies numbness, Denies weakness - Psychiatric Psychiatric: Denies anxiety, Denies depression - Endocrine Endocrine: Denies fatigue, Denies weight change - Hematologic/Lymphatic Comment: stopped taking aspirin Objective - Constitutional General appearance: Present: cooperative - EENT Eyes: Present: EOMI ENT: Present: hearing grossly normal - Neck Neck: Present: normal ROM - Respiratory Respiratory: bilateral: CTA - Cardiovascular Heart sounds: normal: S1, S2 - Gastrointestinal General gastrointestinal: Present: soft - Integumentary Integumentary: Present: normal turgor - Psychiatric Psychiatric: Present: A&O x's 3, appropriate affect, intact judgment & insight - Additional findings Additional findings: Breast Exam: BRA: 36C inspection: Left breast smaller than right breast. Palpation: Right breast: Multi-positional exam fibrocystic changes no dominant masses or nodules of concern Right axilla: No adenopathy of concern Left breast: Postoperative changes no dominant masses or nodules of concern, BioSorb is no longer palpable Left axilla: No adenopathy of concern Assessment and Plan Assessment: Impression: Patient status post left lumpectomy for ductal carcinoma in situ no evidence of recurrent disease Patient did not have radiation or hormonal therapy Asymmetry of the breast Plan: Repeat left breast mammogram in 6 months, bilateral in 1 year follow up in 6 months for an exam CC: Dr. Summers
[2022-11-21 09:16] VITALS: BP 135/76; PULSE 99; RESP 17; TEMP 97.9
== END ==
LOC: WWCWWP 08:58
PROVIDERS: ATTEND Surgery
DX: Z85.3 Personal history of malignant neoplasm of breast (principal); D05.12 Intraductal carcinoma in situ of left breast; E78.00 Pure hypercholesterolemia, unspecified; N64.89 Other specified disorders of breast; Z88.6 Allergy status to analgesic agent; Z87.891 Personal history of nicotine dependence

== ENCOUNTER → 2023-11-16 | Outpatient (CLI) | payer MEDICARE, BC ==
--- NOTE | 2023-11-19 11:38 | MM ---
Reason for Exam: Additional evaluation requested from prior study. Last screening mammogram was performed 12 month(s) ago. Patient History: Menarche at age 10. First Full-Term at age 18. Postmenopausal. Breast cancer, left, age 77. Other cancer. Patient used Estrogen for 20 years. Patient used Progesterone for 20 years. 01/27/2018, Stereotactic Core Biopsy on the Left side. Benign Excisional Biopsy on the right side. Lumpectomy on the Left side. 11/17/2019, Benign Core Biopsy on the left side. 02/23/2018, Benign Core Biopsy on the left side. Prior Study Comparison: 10/31/2019 Bilateral Diagnostic Mammogram, [facility]. 11/01/2020 Bilateral Diagnostic Mammogram, [facility]. 11/08/2021 Bilateral MG 3D diag mammo w/cad CHARIS, [facility]. 11/14/2022 Bilateral MG 3D diag mammo w/cad CHARIS, [facility]. Tissue Density: There are scattered areas of fibroglandular density. Findings: Analyzed By CAD. The pattern is symmetrical. Postsurgical clips from prior lumpectomy are present on the anterior mid left breast. Multiple benign appearing calcifications are present and stable. No suspicious groups of microcalcifications, spiculated or lobular masses, architectural distortion or other secondary signs of malignancy are mammographically apparent. Overall Assessment: Benign, BI-RAD 2 Management: Screening Mammogram of both breasts in 1 year. A negative mammogram report should not preclude additional follow up of suspicious palpable abnormalities. Patient should continue monthly self breast exam. A clinical breast exam by your physician is recommended on an annual basis and results should be correlated with mammographic findings. Note on Sultana scores and lifetime risk: 1. A Sultana score greater than 3% is considered moderate risk. If this is the case, consider specialist referral to assess eligibility for a risk reducing agent. 2. If overall lifetime risk for the development of breast cancer is 20% or higher, the patient may qualify for future screening with alternating mammogram and breast MRI. Electronically signed and approved by: Stephen Obrien D.O. Radiologis
== END | disposition home or self-care (01) ==
LOC: RADMAMWWP 12:55
PROVIDERS: ATTEND Surgery
DX: R92.323 Mammographic fibroglandular density, bilateral breasts (principal); Z85.3 Personal history of malignant neoplasm of breast; Z78.0 Asymptomatic menopausal state
CPT/HCPCS: 77066; G0279; 77062

== ENCOUNTER → 2023-11-19 | Outpatient (CLI) | payer MEDICARE, BC ==
[2023-11-19 11:13] VITALS: BP 143/81; PULSE 72; RESP 16; TEMP 97.8
--- NOTE | 2023-11-19 11:34 | P.PN ---
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 Pathology did not reveal any residual cancer at that time. This was done for ductal carcinoma in situ. The patient did not have any radiation therapy. She did not have any chemo or hormonal therapy. Pathology at the time of surgery did reveal intraductal hyperplasia with atypia and an intraductal papilloma. At this time she is not complaining of any lumps masses or nodules of concern in either breast. She is not complaining of any breast pain. She has not had any recent trauma or infection in the breast. The most recent mammogram was 11-16-23 which was benign BIRAD 2, calcifications in the left breast have decreased. This was personally discussed and previewed with Dr. Murphy. She had COVID in July of 2023 but has recovered without difficulty. Family History: 1. sister: nonHodgkins lymphoma 2. mother: at 98 of CHF 3. father: at 92 af a PA Hormonal history Menarche: 11 Pregnancies: 3, 1 [place] and 2 living, age at first 18, breast fed: no menopause: 43 BCP: no Hormones: 15 years Surgical history 1. Tonsil 2. bilateral breast biopsies 3. left breast lumpectomy and SNB. Medical history: 1. High cholesterol 2. hiatal hernia 3. stopped taking her statins Social history smoke: 30 years, stopped at 43 Alcohol: Wine 1 glass per night Drugs: Negative - Constitutional Constitutional: Denies chills, Denies fever - EENT Eyes: left blurred vision (shingles in left eye), denies pain Ears: bilateral: tinnitus, deny: decreased hearing Ears, nose, mouth and throat: Denies headache, Denies sore throat - Breasts Breasts: bilateral: as per HPI - Cardiovascular Cardiovascular: Denies chest pain, Denies shortness of breath - Respiratory Respiratory: Denies cough - Gastrointestinal Comment: reflux, hiatal hernia Gastrointestinal: Denies abdominal pain, Denies diarrhea, Denies nausea, Denies vomiting - Genitourinary (Female) Genitourinary: Denies dysuria, Denies hematuria - Menstruation Menstruation: Reports postmenopausal - Musculoskeletal Comment: arthritis Musculoskeletal: Denies myalgias - Integumentary Integumentary: Denies pruritus, Denies rash - Neurological Neurological: Denies numbness, Denies weakness - Psychiatric Psychiatric: Denies anxiety, Denies depression - Endocrine Endocrine: Denies fatigue, Denies weight change - Hematologic/Lymphatic Comment: stopped taking aspirin Objective - Vital Signs Vital signs: Vital Signs Temp 97.8 F 11/19/23 11:11 Pulse 72 11/19/23 11:11 Resp 16 11/19/23 11:11 BP 143/81 11/19/23 11:11 Pulse Ox 96 11/19/23 11:11 FiO2 Intake & Output 11/18/23 11/19/23 11/19/23 18:59 06:59 18:59 Weight 76.204 kg - Constitutional General appearance: Present: cooperative - EENT Eyes: Present: EOMI ENT: Present: hearing grossly normal - Neck Neck: Present: normal ROM - Respiratory Respiratory: bilateral: CTA - Cardiovascular Heart sounds: normal: S1, S2 - Integumentary Integumentary: Present: normal turgor - Psychiatric Psychiatric: Present: A&O x's 3, appropriate affect, intact judgment & insight - Additional findings Additional findings: Breast Exam: BRA: 36C inspection: Left breast smaller than right breast. Palpation: Right breast: Multi-positional exam fibrocystic changes no dominant masses or nodules of concern Right axilla: No adenopathy of concern Left breast: Postoperative changes no dominant masses or nodules of concern, BioSorb is no longer palpable Left axilla: No adenopathy of concern Assessment and Plan Assessment: Impression: Patient status post left lumpectomy for ductal carcinoma in situ no evidence of recurrent disease Patient did not have radiation or hormonal therapy Asymmetry of the breast Plan: bilateral mammogram in 1 year follow up in 6 months for an exam CC: Dr. Summers
== END ==
LOC: WWCWWP 10:38
PROVIDERS: ATTEND Surgery
DX: R92.1 Mammographic calcification found on diagnostic imaging of breast (principal); N64.89 Other specified disorders of breast; Z48.817 Encounter for surgical aftercare following surgery on the skin and subcutaneous tissue; Z85.3 Personal history of malignant neoplasm of breast; Z86.16 Personal history of COVID-19; Z87.891 Personal history of nicotine dependence; Z88.8 Allergy status to other drugs, medicaments and biological substances

== ENCOUNTER → 2024-11-16 | Outpatient (CLI) | payer MEDICARE, BC ==
--- NOTE | 2024-11-16 13:36 | MM ---
Reason for Exam: Hx of breast cancer, conservation therapy. Last screening mammogram was performed 12 month(s) ago. Patient History: Menarche at age 10. First Full-Term at age 18. Postmenopausal. Breast cancer, left, age 77. Other cancer. Patient used Estrogen for 20 years. Patient used Progesterone for 20 years. 01/27/2018, Stereotactic Core Biopsy on the Left side. Benign Excisional Biopsy on the right side. Lumpectomy on the Left side. 11/17/2019, Benign Core Biopsy on the left side. 02/23/2018, Benign Core Biopsy on the left side. Prior Study Comparison: 10/31/2019 Bilateral Diagnostic Mammogram, [facility]. 11/01/2020 Bilateral Diagnostic Mammogram, [facility]. 11/08/2021 Bilateral MG 3D diag mammo w/cad CHARIS, [facility]. 11/14/2022 Bilateral MG 3D diag mammo w/cad CHARIS, [facility]. 11/16/2023 Bilateral MG 3D diag mammo w/cad CHARIS, [facility]. Tissue Density: There are scattered areas of fibroglandular density. Findings: Analyzed By CAD. There are benign-appearing rounded dystrophic calcifications scattered throughout the right breast redemonstrated. Benign-appearing vascular calcification is again seen. Numerous surgical clips in the left breast are again identified. No suspicious new mass or distortion in either breast. Overall Assessment: Benign, BI-RAD 2 Management: Screening Mammogram of both breasts in 1 year. . Results were given to the patient verbally at the time of exam. Patient should continue monthly self-breast exams. A clinical breast exam by your physician is recommended on an annual basis. This exam should not preclude additional follow-up of suspicious palpable abnormalities. Note on Sultana scores and lifetime risk: 1. A Sultana score greater than 3% is considered moderate risk. If this is the case, consider specialist referral to assess eligibility for a risk reducing agent. 2. If overall lifetime risk for the development of breast cancer is 20% or higher, the patient may qualify for future screening with alternating mammogram and breast MRI. [facility], , 11/16/2024 1:32 PM. Electronically signed and approved by: Wiley Bergeron M.D.
== END | disposition home or self-care (01) ==
LOC: RADMAMWWP 13:11
PROVIDERS: ATTEND Surgery
DX: R92.323 Mammographic fibroglandular density, bilateral breasts (principal); R92.1 Mammographic calcification found on diagnostic imaging of breast; Z78.0 Asymptomatic menopausal state; Z85.3 Personal history of malignant neoplasm of breast
CPT/HCPCS: 77066; G0279; 77062